=== PATIENT | female | born 1990 | race Caucasian/White ===

== ENCOUNTER → 2016-12-04 | Outpatient (CLI) | payer BC ==
[~2016-12-04] MED LIST: AMOX875T PO; AMPH15CA7 PO; DICL250C73 PO; ESCI10TA17 PO; FEXO1TAB49 PO; SULF800T23 PO
--- NOTE | 2016-12-04 14:17 | EEG Procedure Note ---
EEG Procedure Note Date of Service Dec 04, 2016. Start / End Times Start Time: 10:10 AM End Time: 10:30 AM Referring Physician LYSSA Georges History This is a 26-year-old female with episodes of confusion. EEG for further evaluation of possible seizure etiology. Home medications: No antiepileptic medications or sedating medications reported. Description This is a 21 electrode EEG with a single channel dedicated to limited EKG. The electrodes were placed in accordance with the International 10-20 system. At the start of the recording the patient was in an awake state. Background was well organized and composed of symmetric mixed alpha and beta frequencies. There was a symmetric well-formed moderate amplitude 12 Hz posterior dominant rhythm that was reactive to eye opening and closure. Hyperventilation was not done. Intermittent photic stimulation at various frequencies produced no abnormalities but was stopped early due to patient intolerance. Sleep was indicated by vertex waves and symmetric sleep spindles. Interpretation This is a normal awake and asleep routine routine EEG. There was no electrographic seizures or epileptiform discharges Clinical Correlation A normal EEG does not rule out epilepsy if there is a strong clinical suspicion.
== END | disposition home or self-care (01) ==
LOC: C.NEUR 09:52
PROVIDERS: ATTEND Physician Assistant
DX: R41.0 Disorientation, unspecified (principal)

== ENCOUNTER → 2016-12-04 | Outpatient (CLI) | payer BC ==
[~2016-12-04] MED LIST changes: +GADAVIST IV PRN
--- NOTE | 2016-12-04 09:12 | DIAGNOSTIC IMAGING REPORT ---
MRI OF THE BRAIN WITHOUT AND WITH IV CONTRAST CLINICAL HISTORY: CONFUSION POSSIBLE SEIZURE. COMPARISON STUDY: Outside MRI performed July 2011 TECHNIQUE: MRI of the brain was performed from the vertex to the skull base utilizing various T1 and T2 weighted sequences. Following the IV administration of 8 mL of Gadavist contrast, additional enhanced images were obtained. FINDINGS: Sagittal T1, axial diffusion, proton density and T2 weighted axial, coronal FLAIR, and pre and post axial T1-weighted images were acquired. These were supplemented with post gadolinium coronal T1 weighted images. No intra or extra-axial mass lesions are visualized. Axial diffusion-weighted images reveal no evidence of acute or subacute infarction. There is no evidence of ventricular dilatation. Proton density T2-weighted and FLAIR images reveal no significant intraparenchymal signal abnormalities. There are no abnormal flow voids. There is no evidence of pathologic enhancement. There is persistent opacification of a single left posterior ethmoid air cell. IMPRESSION: Normal MRI of the brain Electronically signed by: Perez Haddad M.D. 12/04/2016 9:11 AM Dictated Date/Time: 12/04/2016 9:07 AM
== END | disposition home or self-care (01) ==
LOC: C.MRIBC 08:21
PROVIDERS: ATTEND Physician Assistant
DX: R41.0 Disorientation, unspecified (principal)

== ENCOUNTER → 2017-01-13 | Outpatient (CLI) | payer BC ==
[~2017-01-13] MED LIST changes: -GADAVIST IV PRN
== END | disposition home or self-care (01) ==
LOC: C.LABSPEC 15:40
PROVIDERS: ATTEND Obstetrics & Gynecology
DX: N76.0 Acute vaginitis (principal)

== ENCOUNTER → 2017-01-13 | Outpatient (CLI) | payer BC ==
[2017-01-13 15:47] LABS: BASO % 0.3 %; BASO ABS # 0.02 K/uL (0-0.2); COMPLETE YES; IG% 0.2 %; LYMPH % 32.7 %; LYMPH ABS # 2.05 K/uL (1.2-3.4); MEAN CELL VOLUME 88.4 fL (80-100); MEAN CORPUSCULAR HEMOGLOBIN 29.3 pg (25-34); MEAN CORPUSCULAR HGB CONC 33.2 g/dl (32-36); MEAN PLATELET VOLUME 9.4 fL (7.4-10.4); MONO % 5.4 %; NEUT % 60.4 %; PLATELET COUNT 252 K/uL (130-400); RED BLOOD COUNT 4.64 M/uL (4.2-5.4); WHITE BLOOD COUNT 6.27 K/uL (4.8-10.8)
[2017-01-13 15:56] LABS: ALT/SGPT 23 U/L (12-78); BLOOD UREA NITROGEN 13 mg/dl (7-18); BUN/CREATININE RATIO 16.2 (10-20); CALCIUM 8.8 mg/dl (8.5-10.1); CARBON DIOXIDE 25 mmol/L (21-32); CHLORIDE 109 mmol/L (98-107); CHOLESTEROL 153 mg/dl (0-200); CREATININE 0.78 mg/dl (0.60-1.20); GLUCOSE 87 mg/dl (70-99); POTASSIUM 4.1 mmol/L (3.5-5.1); SODIUM 140 mmol/L (136-145); TRIGLYCERIDES 33 mg/dl (0-150); VERY LOW DENSITY LIPOPROT CALC 7 mg/dl
[2017-01-13 16:07] LABS: ALB/GLOB RATIO 0.9 (0.9-2); ALKALINE PHOSPHATASE 59 U/L (45-117); AST/SGOT 13 U/L (15-37); CHOLESTEROL/HDL RATIO 2.4; HDL CHOLESTEROL 63 mg/dl; LDL CHOLESTEROL CALCULATED 83 mg/dl
== END | disposition home or self-care (01) ==
LOC: C.LAB1850 14:21
PROVIDERS: ATTEND Physician Assistant
DX: Z00.00 Encounter for general adult medical examination without abnormal findings (principal); R41.0 Disorientation, unspecified; R63.5 Abnormal weight gain

== ENCOUNTER 2017-01-27 13:17 | Emergency (ER) | payer BC ==
[~2017-01-27] VITALS: Ht 162.6 cm; Wt 93.0 kg
[2017-01-27 13:19] VITALS: TEMP 36.7; Ht 162.6 cm; Wt 93.0 kg
[2017-01-27] MEDS ORDERED: AMPH15CA7 PO (13:38)
[2017-01-27] MEDS ORDERED: FEXO1TAB49 PO (13:38)
[2017-01-27] MEDS ORDERED: DICL250C73 PO (13:38)
[2017-01-27] MEDS ORDERED: ESCI10TA17 PO (13:38)
[2017-01-27] MEDS ORDERED: SULFAMETHOXAZOLE/TRIMETHOPRIM DS 800/160MG TAB PO STA (13:48)
[2017-01-27] MEDS ORDERED: OPTIRAY 320 IV PRN (14:00)
[2017-01-27] MEDS ORDERED: AMPICILLIN/SULBACTAM SOD INJ 3,000 MG in SODIUM CHLORIDE 0.9% 100ML 100 ML IV ONE (14:00)
[2017-01-27 14:13] LABS: BASO % 0.1 %; BASO ABS # 0.01 K/uL (0-0.2); COMPLETE YES; EOS % 0.7 %; HEMATOCRIT 39.4 % (37-47); IG% 0.2 %; LYMPH % 22.6 %; LYMPH ABS # 1.84 K/uL (1.2-3.4); MEAN CELL VOLUME 87.6 fL (80-100); MEAN CORPUSCULAR HEMOGLOBIN 30.7 pg (25-34); MONO % 4.8 %; NEUT % 71.6 %; PLATELET COUNT 235 K/uL (130-400); WHITE BLOOD COUNT 8.13 K/uL (4.8-10.8)
--- NOTE | 2017-01-27 14:50 | DIAGNOSTIC IMAGING REPORT ---
ORBITS/SELLA/TEMP WITH CLINICAL HISTORY: rt eyelid cellulitis/abscess pain. Infection. TECHNIQUE: Transaxial acquisition with multi axial reformatted images COMPARISON STUDY: None FINDINGS: Moderate right preorbital cellulitis. Moderate soft tissue edematous change. No evidence for subcutaneous air. The lobe itself appears unremarkable. The retroseptal structures are unremarkable. There are no retroseptal infiltrative change. There is no evidence for drainable abscess or collection. The osseous structures are intact throughout. Mastoid air cells are clear. All remaining components of the sinuses are clear. IMPRESSION: 1. Moderate right preorbital cellulitis. 2. No evidence for drainable abscess or collection. 3. No evidence for bony erosive process. The above report was generated using voice recognition software. It may contain grammatical, syntax or spelling errors. Electronically signed by: Kev Eden M.D. 01/27/2017 2:48 PM Dictated Date/Time: 01/27/2017 2:35 PM
[2017-01-27] MEDS ORDERED: SULF800T23 PO (15:01)
[2017-01-27] MEDS ORDERED: AMOX875T PO (15:01)
--- NOTE | 2017-01-27 15:03 | EMERGENCY ROOM VISIT NOTE ---
History Report prepared by Marvin: Yarelis Garrett Under the Supervision of: Dr. Rk Sandra D.O. First contact with patient: 13:33 Chief Complaint: INFECTION Stated Complaint: CELLULITIS/OCULAR Nursing Triage Summary: right perorbital cellulitis that went away with ABX 2 wks ago and then returned but has not gotten better sent over from eye History of Present Illness The patient is a 26 year old female who presents to the Emergency Room with complaints of a worsening infection superior to her right eye that started 4 days ago. She has erythema and edema superior to her right eye that is painful to the touch. The patient states that she experienced similar symptoms 2-3 weeks ago, but the infection was lateral to her right eye instead of superior to it. The patient states that she saw her aircraft landing gear inspector, Dr. Conti, for that infection and he prescribed her dicloxacillin. With that infection, the dicloxacillin resolved her symptoms but they came back 4 days ago, the day after plucking an eyebrow hair. She saw her aircraft landing gear inspector 4 days ago, when her symptoms started and he recommended following up with an eyelid specialist in [place]. She states that she could not make it there in time so she decided to come into the ED instead. The patient is also experiencing a headache which she is able to relieve with Advil. The patient states that she has been icing her eye daily which offers temporary relief of her pain and edema. She denies any fevers. She adds that her father has a history of MRSA. Source of History: patient Onset: 4 days ago Position: eye (right) Quality: other (superior to right eye) Timing: worsening Associated Symptoms: + headache, No fevers Review of Systems See HPI for pertinent positives & negatives. A total of 10 systems reviewed and were otherwise negative. Past Medical & Surgical Medical Problems: (1) Closed fracture of unspecified bone(s) of foot (except toes) Family History No pertinent family history Social History Smoking Status: Never Smoker Marital Status: single Current/Historical Medications Scheduled Amoxicillin & Pot Clavulanate (Augmentin 875-125 mg), 875 MG PO BID Amphetamine-Dextroamphetamine 15MG (Adderall Xr 15MG), 15 MG PO DAILY Dicloxacillin Sodium (Dynapen), 250 MG PO Q6H Escitalopram (Lexapro), 15 MG PO DAILY Sulfa/Trimethoprim (Bactrim Ds 800MG/160MG), 1 TAB PO BID Scheduled PRN Fexofenadine Hcl (Nicki Allergy), 180 MG PO DAILY PRN for ALLERGIES Allergies Coded Allergies: No Known Allergies (Unverified , 12/04/16) Physical Exam Vital Signs Date Time Temp Pulse Resp B/P (MAP) Pulse Ox O2 Delivery O2 Flow Rate FiO2 01/27/17 13:19 36.7 89 16 150/97 97 Room Air Physical Exam CONSTITUTIONAL/VITAL SIGNS: Reviewed / noted above. GENERAL: Non-toxic in appearance. INTEGUMENTARY: Warm, dry, and Morning Sun. HEAD: Normocephalic. EYES: Swelling and erythema in the right eyelid region that is raised and tender. No scleral icterus or trauma. ENT/OROPHARYNX: clear and moist. LYMPHADENOPATHY/NECK: Is supple without lymphadenopathy or meningismus. RESPIRATORY: Lungs clear and equal. CARDIOVASCULAR: Regular rate and rhythm. GI/ABDOMEN: Soft and nontender. No organomegaly or pulsatile mass. No rebound or guarding. Normal bowel sounds. EXTREMITIES: Warm and well perfused. BACK: No CVA tenderness. NEUROLOGICAL: Intact without focal deficits. PSYCHIATRIC: normal affect. MUSCULOSKELETAL: Normally developed with good muscle tone. Medical Decision & Procedures ER Provider Diagnostic Interpretation: CT results as stated below per my review and radiologist interpretation: ORBITS/SELLA/TEMP WITH FINDINGS: Moderate right preorbital cellulitis. Moderate soft tissue edematous change. No evidence for subcutaneous air. The lobe itself appears unremarkable. The retroseptal structures are unremarkable. There are no retroseptal infiltrative change. There is no evidence for drainable abscess or collection. The osseous structures are intact throughout. Mastoid air cells are clear. All remaining components of the sinuses are clear. IMPRESSION: 1. Moderate right preorbital cellulitis. 2. No evidence for drainable abscess or collection. 3. No evidence for bony erosive process. The above report was generated using voice recognition software. It may contain grammatical, syntax or spelling errors. Electronically signed by: Kev Eden M.D. 01/27/2017 2:48 PM Dictated Date/Time: 01/27/2017 2:35 PM Laboratory Results 01/27/17 14:00 Red Blood Count 4.50, Mean Corpuscular Volume 87.6, Mean Corpuscular Hemoglobin 30.7, Mean Corpuscular Hemoglobin Concent 35.0, Mean Platelet Volume 9.0, Neutrophils (%) (Auto) 71.6, Lymphocytes (%) (Auto) 22.6, Monocytes (%) (Auto) 4.8, Eosinophils (%) (Auto) 0.7, Basophils (%) (Auto) 0.1, Neutrophils # (Auto) 5.81, Lymphocytes # (Auto) 1.84, Monocytes # (Auto) 0.39, Eosinophils # (Auto) 0.06, Basophils # (Auto) 0.01 Test 01/27/17 14:00 White Blood Count 8.13 K/uL (4.8-10.8) Red Blood Count 4.50 M/uL (4.2-5.4) Hemoglobin 13.8 g/dL (12.0-16.0) Hematocrit 39.4 % (37-47) Mean Corpuscular Volume 87.6 fL (80-100) Mean Corpuscular Hemoglobin 30.7 pg (25-34) Mean Corpuscular Hemoglobin Concent 35.0 g/dl (32-36) Platelet Count 235 K/uL (130-400) Mean Platelet Volume 9.0 fL (7.4-10.4) Neutrophils (%) (Auto) 71.6 % Lymphocytes (%) (Auto) 22.6 % Monocytes (%) (Auto) 4.8 % Eosinophils (%) (Auto) 0.7 % Basophils (%) (Auto) 0.1 % Neutrophils # (Auto) 5.81 K/uL (1.4-6.5) Lymphocytes # (Auto) 1.84 K/uL (1.2-3.4) Monocytes # (Auto) 0.39 K/uL (0.11-0.59) Eosinophils # (Auto) 0.06 K/uL (0-0.5) Basophils # (Auto) 0.01 K/uL (0-0.2) RDW Standard Deviation 41.1 fL (36.4-46.3) RDW Coefficient of Variation 12.7 % (11.5-14.5) Immature Granulocyte % (Auto) 0.2 % Immature Granulocyte # (Auto) 0.02 K/uL (0.00-0.02) Laboratory results as stated above per my review. Medications Administered Medications (Trade) Dose Ordered Sig/Neeraj Route Start Time Stop Time Status Last Admin Dose Admin Ampicillin Sodium/ Sulbactam Sodium 3000 mg/Sodium Chloride 108 ml @ 200 mls/hr ONE ONCE IV 01/27/17 14:00 01/27/17 14:32 DC 01/27/17 14:19 200 MLS/HR Trimethoprim/ Sulfamethoxazole (Septra Ds 800/ 160MG Tab) 1 tab NOW STAT PO 01/27/17 13:48 01/27/17 13:49 DC 01/27/17 14:19 1 TAB ED Course 1341: Previous medical records were reviewed. The patient was evaluated in room B11. A complete history and physical examination was performed. 1348: Ordered Trimethoprim/Sulfamethoxazole 1 tab PO 1400: Ordered Ampicillin Sodium/Sulbactam Sodium 3000 mg/Sodium Chloride 108 ml @ 200 mls/hr IV 1504: On reevaluation, the patient is doing well. I discussed the results and findings with the patient. She verbalized agreement of the treatment plan. She was discharged home. Medical Decision Differentials considered include cellulitis, abscess, MRSA infection, DVT, necrotizing fasciitis, dermatitis, drug eruption. This is a 26-year-old female who presents to the ED with a chief complaint of right eye swelling. The patient states that she was seen by her aircraft landing gear inspector couple of weeks ago for an infection of the right eyelid. This resolved with taking dicloxacillin. The patient states that she pulled an eye brow hair about 4 or 5 days ago and developed redness associated with this. The patient was again started on dicloxacillin but has been on this for 4 days and she has not noticed any improvement and the swelling seems to have gotten a little worse. The patient was referred here. She is also been referred to an yarn texture machine operator. A CT scan of the orbits reveals moderate right periorbital cellulitis. The patient does not have any discomfort with extraocular motions. CBC was normal. The patient was given IV Unasyn and by mouth Bactrim. She' ll be discharged on Augmentin and Bactrim. She is told to follow-up with the yarn texture machine operator. Medication Reconcilliation Current Medication List: was personally reviewed by me Blood Pressure Screening Patient's blood pressure: Elevated blood pressure Blood pressure disposition: Elevated BP felt to be situational Impression Primary Impression: Periorbital cellulitis of right eye Scribe Attestation The scribe's documentation has been prepared under my direction and personally reviewed by me in its entirety. I confirm that the note above accurately reflects all work, treatment, procedures, and medical decision making performed by me. Departure Information Dispostion Home / Self-Care Prescriptions Amoxicillin & Pot Clavulanate (Augmentin 875-125 mg) 1 Tab Tab 875 MG PO BID, #20 TAB Prov: Rk Sandra D.O. 01/27/17 Sulfa/Trimethoprim (Bactrim Ds 800MG/160MG) Tab 1 TAB PO BID, #20 TAB Prov: Rk Sandra D.O. 01/27/17 Referrals Fernando Palomino M.D. (PCP) Forms HOME CARE DOCUMENTATION FORM, IMPORTANT VISIT INFORMATION, WORK / SCHOOL INSTRUCTIONS Patient Instructions My [facility] Additional Instructions Discontinue dicloxacillin. Augmentin and Bactrim as prescribed. Follow-up with the yarn texture machine operator that Dr. Rutledge recommended. Call tomorrow for appointment. Return for significant worsening, severe pain with movement of her eyes, fevers , vomiting or other concerns.
[2017-01-27 15:25] VITALS: BP 114/82; PULSE 69; O2SAT 99
== END 2017-01-27 15:45 | disposition home or self-care (01) ==
LOC: C.EDB 13:18
DX: L03.213 Periorbital cellulitis (principal)

== ENCOUNTER → 2017-03-21 | Outpatient (CLI) | payer BC ==
[~2017-03-21] MED LIST changes: -AMOX875T PO
[2017-03-23 21:33] LABS: GLIADIN DEAMIDATED IgA AB 15 UNITS (<20); GLIADIN DEAMIDATED IgG AB 3 UNITS (<20); RETICULIN IgA AB Negative (Negative)
== END | disposition home or self-care (01) ==
LOC: C.LAB1850 12:11
PROVIDERS: ATTEND Internal Medicine
DX: B99.9 Unspecified infectious disease (principal)

== ENCOUNTER → 2017-08-27 | Outpatient (CLI) | payer BC ==
[~2017-08-27] MED LIST changes: -SULF800T23 PO
== END | disposition home or self-care (01) ==
LOC: C.LABSPEC 11:12
PROVIDERS: ATTEND Physician Assistant
DX: Z30.430 Encounter for insertion of intrauterine contraceptive device (principal)